=== PATIENT | male | born 1995 ===

== ENCOUNTER 2021-06-19 08:03 | Emergency (ER) | payer SELFPAY ==
[2021-06-19 08:10] VITALS: BP 147/89
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
== END 2021-06-19 09:45 | disposition home or self-care (01) ==
LOC: ED 08:03
DX: S16.1XXA Strain of muscle, fascia and tendon at neck level, initial encounter (principal); S76.012A Strain of muscle, fascia and tendon of left hip, initial encounter; S29.012A Strain of muscle and tendon of back wall of thorax, initial encounter; V49.49XA Driver injured in collision with other motor vehicles in traffic accident, initial encounter; Y93.89 Activity, other specified; Y92.410 Unspecified street and highway as the place of occurrence of the external cause; Y99.8 Other external cause status
CPT/HCPCS: 99282